=== PATIENT | male | born 1940 | race Caucasian/White ===

== ENCOUNTER 2019-09-22 11:35 | Inpatient (IN) ==
[2019-09-22] MEDS ORDERED: cefTRIAXone(*) 2 GM ADDV.VIAL 2 GM in NS 0.9% 100 ml BAG 100 ML IVPB ONE (12:42)
[2019-09-22] MEDS ORDERED: NS 0.9% 1000 ml BAG 2,250 ML IV ONE (12:45)
[2019-09-22 12:59] LABS: ABS Lymphocytes 0.4 10^3/ul (1.0-4.8); ABS Monocytes 0.7 10^3/ul (0-0.8); Hematocrit 26 % (42-52); Hemoglobin 8.8 g/dL (14.0-18.0); Lymphocyte % 4.4 %; Mean Corpuscular HGB Conc 33 g/dL (31-36); Mean Corpuscular Hemoglobin 29 pg (27-31); Mean Corpuscular Volume 88 fL (80-94); Mean Platelet Volume 9.3 fL (7.4-10.4); Platelet Count 188 10^3/uL (150-450); Red Blood Count 2.99 10^6 /uL (4.18-5.48); Red Cell Distribution Width 17 % (10-15); White Blood Count 8.6 10^3/uL (3.5-10.8)
[2019-09-22] MEDS ORDERED: Cefepime 2 GM in Dextrose(*) 2 GM/50 ML BAG IV ONE (13:11)
[2019-09-22 13:20] LABS: ALT 14 U/L (7-52); AST 10 U/L (13-39); Albumin 3.2 g/dL (3.2-5.2); Albumin/Globulin Ratio 0.7 (1-3); Alkaline Phosphatase 53 U/L (34-104); Anion Gap 8 mmol/L (2-11); BUN/Creatinine Ratio 15.8 (8-20); Blood Urea Nitrogen 16 mg/dL (6-24); C Reactive Protein 81.32 mg/L (<8.01); CO2 Carbon Dioxide 22 mmol/L (22-32); Chloride 102 mmol/L (101-111); EGFR African American 86.7 (>60); EGFR Non-African American 71.6 (>60); Globulin 4.7 g/dL (2-4); Glucose 151 mg/dL (70-100); Potassium 3.5 mmol/L (3.5-5.0); Sodium 132 mmol/L (135-145); Total Protein 7.9 g/dL (6.4-8.9)
[2019-09-22 13:31] LABS: Troponin I 0.03 ng/mL (<0.03)
[2019-09-22 14:11] LABS: Activated Partial Thrombo Time 32.4 seconds (26.0-38.0); INR 1.65 (0.82-1.09)
[2019-09-22] MEDS ORDERED: Dextrose 50% Syringe 50 ml 25 GM/50 ML SYRINGE IV PUSH PRN (14:13)
[2019-09-22] MEDS ORDERED: Ondansetron 4 mg VIAL 2 MG/ML 2 ml VIAL IV PRN (14:15)
[2019-09-22] MEDS ORDERED: Senna TAB 8.6 mg TAB PO PRN (14:15)
[2019-09-22] MEDS ORDERED: NS 0.9% 1000 ml BAG 1,000 ML IV SCH (14:15)
[2019-09-22 14:43] LABS: Amylase 21 U/L (29-103)
[2019-09-22 15:08] LABS: Urine Appearance Cloudy; Urine Bilirubin Negative (Negative); Urine Blood Negative (Negative); Urine Color Yellow; Urine Glucose 1+(50 mg/dL) (Negative); Urine Ketones Trace (Negative); Urine Nitrite Negative (Negative); Urine Protein 1+(30 mg/dL) (Negative); Urine Specific Gravity 1.012 (1.010-1.030); Urine Urobilinogen Negative (Negative)
[2019-09-22 15:13] LABS: Urine Bacteria Absent (Absent); Urine Red Blood Cell Absent (Absent); Urine White Blood Cell Trace(0-5/hpf) (Absent)
[2019-09-22 16:39] LABS: Magnesium 1.7 mg/dL (1.9-2.7)
[2019-09-22 17:11] LABS: Troponin I 0.03 ng/mL (<0.03)
[2019-09-22] MEDS: Rivaroxaban 20 mg TAB (*) PO SCH (17:20)
[2019-09-22] MEDS: oxyCODONE/Acetamin 5/325 mg TAB PO PRN (17:20)
[2019-09-22] MEDS: CALCITONIN INTRANASAL SCH (17:22)
[2019-09-22] MEDS: Insulin LISPRO 100 units/ml(*) SUBCUT SCH (17:23)
[2019-09-22] MEDS ORDERED: Magnesium Sulfate 2 gm BAG 2 GM/50 ML BAG IVPB ONE (18:51)
[2019-09-22] MEDS ORDERED: Calcium Carb 1250 mg TAB (500 mg elemental calcium) PO ONE (18:52)
[2019-09-23] MEDS: Cefepime 2 GM in Dextrose(*) 2 GM/50 ML BAG IV SCH ×2 (02:56→14:16)
[2019-09-23 06:29] LABS: ABS Lymphocytes 0.5 10^3/ul (1.0-4.8); ABS Monocytes 0.4 10^3/ul (0-0.8); Eosinophil % 0.3 %; Hematocrit 22 % (42-52); Hemoglobin 7.6 g/dL (14.0-18.0); Lymphocyte % 10.2 %; Mean Corpuscular HGB Conc 35 g/dL (31-36); Mean Corpuscular Hemoglobin 30 pg (27-31); Mean Corpuscular Volume 87 fL (80-94); Mean Platelet Volume 8.9 fL (7.4-10.4); Nucleated Red Blood Cells % 0.1; Platelet Count 141 10^3/uL (150-450); Red Blood Count 2.52 10^6 /uL (4.18-5.48); Red Cell Distribution Width 16 % (10-15); White Blood Count 4.8 10^3/uL (3.5-10.8)
[2019-09-23 06:43] LABS: BUN/Creatinine Ratio 14.3 (8-20); Calcium 7.4 mg/dL (8.6-10.3); EGFR African American 107.2 (>60); EGFR Non-African American 88.6 (>60); Potassium 3.1 mmol/L (3.5-5.0)
[2019-09-23] MEDS: CALCITONIN INTRANASAL SCH (08:10)
[2019-09-23] MEDS: Insulin LISPRO 100 units/ml(*) SUBCUT SCH ×3 (08:29→16:40)
[2019-09-23] MEDS: Rivaroxaban 20 mg TAB (*) PO SCH (08:31)
[2019-09-23] MEDS: oxyCODONE/Acetamin 5/325 mg TAB PO PRN ×3 (08:31→23:48)
[2019-09-23] MEDS: KCL 20 MEQ/100 ML IVPREMIX 20 MEQ/100 ML BAG IV SCH ×3 (09:53→15:05)
[2019-09-23] MEDS ORDERED: cefTRIAXone(*) 2 GM ADDV.VIAL 2 GM in NS 0.9% 100 ml BAG 100 ML IV SCH (20:00)
[2019-09-24] MEDS: cefTRIAXone(*) 2 GM ADDV.VIAL 2 GM in NS 0.9% 100 ml BAG 100 ML IV SCH (02:35)
[2019-09-24 07:27] LABS: ABS Lymphocytes 0.6 10^3/ul (1.0-4.8); ABS Monocytes 0.4 10^3/ul (0-0.8); Eosinophil % 0.7 %; Hematocrit 23 % (42-52); Hemoglobin 7.9 g/dL (14.0-18.0); Lymphocyte % 12.4 %; Mean Corpuscular HGB Conc 35 g/dL (31-36); Mean Corpuscular Hemoglobin 31 pg (27-31); Mean Corpuscular Volume 87 fL (80-94); Mean Platelet Volume 8.4 fL (7.4-10.4); Nucleated Red Blood Cells % 0.1; Platelet Count 159 10^3/uL (150-450); Red Cell Distribution Width 16 % (10-15); White Blood Count 4.4 10^3/uL (3.5-10.8)
[2019-09-24 07:43] LABS: BUN/Creatinine Ratio 11.8 (8-20); Calcium 6.9 mg/dL (8.6-10.3); EGFR African American 120.3 (>60); EGFR Non-African American 99.5 (>60); Potassium 3.2 mmol/L (3.5-5.0)
[2019-09-24] MEDS ORDERED: cefTRIAXone(*) 2 GM ADDV.VIAL 2 GM in NS 0.9% 100 ml BAG 100 ML IV SCH (09:00)
[2019-09-24] MEDS: Insulin LISPRO 100 units/ml(*) SUBCUT SCH ×3 (09:41→17:11)
[2019-09-24] MEDS: Morphine ER 15 mg (*) ** extended release PO SCH ×2 (10:45→23:10)
[2019-09-24] MEDS: CALCITONIN INTRANASAL SCH (10:50)
[2019-09-24] MEDS: Rivaroxaban 20 mg TAB (*) PO SCH (10:59)
[2019-09-24] MEDS: oxyCODONE/Acetamin 5/325 mg TAB PO PRN ×2 (13:07→19:41)
[2019-09-24] MEDS ORDERED: Midazolam 5 mg/5 ml VIAL 1 mg/ml 5 ml VIAL (5 mg) ONE (13:55)
[2019-09-24] MEDS ORDERED: Flumazenil 0.5 mg/5 ml 0.1 MG/ML 5 ml VIAL ONE (13:55)
[2019-09-24] MEDS ORDERED: Naloxone 0.4 mg VIAL 0.4 mg/ml 1 ml VIAL ONE (13:55)
[2019-09-24] MEDS ORDERED: fentaNYL 100 mcg/2 ml 50 MCG/ML VIAL ONE (13:55)
[2019-09-25] MEDS: cefTRIAXone(*) 2 GM ADDV.VIAL 2 GM in NS 0.9% 100 ml BAG 100 ML IV SCH (02:19)
[2019-09-25 07:54] LABS: ABS Lymphocytes 0.7 10^3/ul (1.0-4.8); ABS Monocytes 0.4 10^3/ul (0-0.8); Eosinophil % 0.6 %; Hematocrit 23 % (42-52); Lymphocyte % 17.2 %; Mean Corpuscular HGB Conc 35 g/dL (31-36); Mean Corpuscular Hemoglobin 30 pg (27-31); Mean Corpuscular Volume 87 fL (80-94); Mean Platelet Volume 8.7 fL (7.4-10.4); Platelet Count 188 10^3/uL (150-450); Red Blood Count 2.62 10^6 /uL (4.18-5.48); Red Cell Distribution Width 16 % (10-15)
[2019-09-25 08:07] LABS: Calcium 6.6 mg/dL (8.6-10.3); Magnesium 1.5 mg/dL (1.9-2.7); Potassium 3.3 mmol/L (3.5-5.0)
[2019-09-25 08:12] LABS: EGFR African American 108.7 (>60); EGFR Non-African American 89.8 (>60)
[2019-09-25] MEDS: Insulin LISPRO 100 units/ml(*) SUBCUT SCH ×3 (08:20→18:22)
[2019-09-25] MEDS: Rivaroxaban 20 mg TAB (*) PO SCH (08:23)
[2019-09-25] MEDS ORDERED: Magnesium Sulf 4 GM/100 ML IV 4,000 MG/100 ML BAG IVPB ONE (08:43)
[2019-09-25] MEDS ORDERED: Potassium Chlor 20 meq TAB.ER PO ONE (08:44)
[2019-09-25] MEDS ORDERED: KCL 20 MEQ/100 ML IVPREMIX 20 MEQ/100 ML BAG IV SCH (09:00)
[2019-09-25] MEDS: oxyCODONE/Acetamin 5/325 mg TAB PO PRN ×2 (09:02→19:58)
[2019-09-25] MEDS: Morphine ER 15 mg (*) ** extended release PO SCH ×2 (10:41→22:49)
[2019-09-25] MEDS: CALCITONIN INTRANASAL SCH (10:49)
[2019-09-26] MEDS: cefTRIAXone(*) 2 GM ADDV.VIAL 2 GM in NS 0.9% 100 ml BAG 100 ML IV SCH (02:10)
[2019-09-26] MEDS: CALCITONIN INTRANASAL SCH (08:33)
[2019-09-26] MEDS: Insulin LISPRO 100 units/ml(*) SUBCUT SCH ×2 (08:38→12:54)
[2019-09-26] MEDS: Rivaroxaban 20 mg TAB (*) PO SCH (08:39)
[2019-09-26] MEDS: oxyCODONE/Acetamin 5/325 mg TAB PO PRN ×2 (09:45→15:57)
[2019-09-26 09:55] LABS: ABS Lymphocytes 0.6 10^3/ul (1.0-4.8); ABS Monocytes 0.3 10^3/ul (0-0.8); Eosinophil % 1.2 %; Hematocrit 23 % (42-52); Mean Corpuscular HGB Conc 34 g/dL (31-36); Mean Corpuscular Hemoglobin 30 pg (27-31); Mean Corpuscular Volume 87 fL (80-94); Mean Platelet Volume 7.5 fL (7.4-10.4); Platelet Count 200 10^3/uL (150-450); Red Blood Count 2.68 10^6 /uL (4.18-5.48); Red Cell Distribution Width 16 % (10-15); White Blood Count 3.2 10^3/uL (3.5-10.8)
[2019-09-26 10:09] LABS: BUN/Creatinine Ratio 8.7 (8-20); Calcium 6.5 mg/dL (8.6-10.3); EGFR African American 134.5 (>60); EGFR Non-African American 111.2 (>60); Potassium 3.3 mmol/L (3.5-5.0)
[2019-09-26 10:18] LABS: Magnesium 1.7 mg/dL (1.9-2.7)
[2019-09-26] MEDS ORDERED: Magnesium Sulfate 2 gm BAG 2 GM/50 ML BAG IVPB ONE (10:53)
[2019-09-26] MEDS ORDERED: Potassium Chlor 20 meq TAB.ER PO ONE (10:54)
[2019-09-26] MEDS: Morphine ER 15 mg (*) ** extended release PO SCH (11:35)
[2019-09-26 16:10] VITALS: BP 120/66
== END 2019-09-26 17:20 | disposition home health service (06) | DRG 872 ==
LOC: ED 11:35 → MED 14:15
PROVIDERS: ADMIT Hospitalist; ATTEND Internal Medicine

== ENCOUNTER 2021-01-26 17:11 | Inpatient (IN) ==
[2021-01-26] MEDS ORDERED: Lactated Ringers 1000 ml BAG IV.FLUID IV ONE (19:11)
[2021-01-26 21:00] LABS: ABS Lymphocytes 0.4 10^3/ul (1.0-4.8); ABS Monocytes 0.5 10^3/ul (0-0.8); ABS Neutrophils 2.5 10^3/ul (1.5-7.7); Hematocrit 28 % (42-52); Hemoglobin 9.3 g/dL (14.0-18.0); Lymphocyte % 11.4 %; Mean Corpuscular HGB Conc 34 g/dL (31-36); Mean Corpuscular Hemoglobin 30 pg (27-31); Mean Corpuscular Volume 88 fL (80-94); Mean Platelet Volume 7.9 fL (7.4-10.4); Platelet Count 170 10^3/uL (150-450); Red Blood Count 3.12 10^6 /uL (4.18-5.48); Red Cell Distribution Width 19 % (10-15); White Blood Count 3.4 10^3/uL (3.5-10.8)
[2021-01-26 21:09] LABS: Activated Partial Thrombo Time 33.4 seconds (26.0-38.0); INR 1.84 (0.86-1.15)
[2021-01-26 21:17] LABS: Rapid COVID-19 Molecular Undetected (Undetected)
[2021-01-26 21:22] LABS: ALT 11 U/L (7-52); AST 12 U/L (13-39); Albumin 4.1 g/dL (3.2-5.2); Albumin/Globulin Ratio 1.1 (1-3); Alkaline Phosphatase 47 U/L (35-149); Anion Gap 9 mmol/L (2-11); Blood Urea Nitrogen 28 mg/dL (6-24); C Reactive Protein 75.75 mg/L (<8.01); CO2 Carbon Dioxide 24 mmol/L (22-32); Chloride 101 mmol/L (101-111); Globulin 3.6 g/dL (2-4); Glucose 167 mg/dL (70-100); Potassium 4.1 mmol/L (3.5-5.0); Sodium 134 mmol/L (135-145); Total Protein 7.7 g/dL (6.4-8.9)
[2021-01-26 21:25] LABS: Troponin I 0.03 ng/mL (<0.03)
[2021-01-26 21:44] LABS: Influenza A Molecular Negative (Negative); Influenza B Molecular Negative (Negative)
[2021-01-26] MEDS ORDERED: cefTRIAXone 1 gm/50 mL NS BAG 1 GM/50 ML BAG IV ONE (23:07)
[2021-01-26] MEDS ORDERED: Azithromycin 500 mg/250 ml NS 500 MG/250 ML BAG IVPB ONE (23:07)
[2021-01-26] MEDS ORDERED: Iodixanol (CONTRAST) 320 MG/ML 100 ML SDV IV ONE (23:15)
[2021-01-26 23:57] LABS: Urine Appearance Clear; Urine Bilirubin Negative (Negative); Urine Blood Negative (Negative); Urine Color Yellow; Urine Glucose 1+(50 mg/dL) (Negative); Urine Ketones Negative (Negative); Urine Nitrite Negative (Negative); Urine Protein 1+(30 mg/dL) (Negative); Urine Specific Gravity 1.015 (1.002-1.030); Urine Urobilinogen Negative (Negative)
[2021-01-26 23:58] LABS: Urine Bacteria Absent (Absent); Urine Red Blood Cell Trace(0-2/hpf) (Absent); Urine White Blood Cell Trace(0-5/hpf) (Absent)
[2021-01-27] MEDS ORDERED: Magnesium Hydroxide LIQ 30 ML UDC PO PRN (02:28)
[2021-01-27] MEDS ORDERED: NS 0.9% 1000 ml BAG 1,000 ML IV SCH ×4 (02:30→19:45)
[2021-01-27] MEDS ORDERED: oxyCODONE/Acetamin 5/325 mg TAB PO PRN (02:45)
[2021-01-27] MEDS ORDERED: Senna TAB 8.6 mg TAB PO PRN (02:45)
[2021-01-27] MEDS ORDERED: Dextrose 50% Syringe 50 ml 25 GM/50 ML SYRINGE IV PUSH PRN (02:48)
[2021-01-27 04:55] LABS: ABS Lymphocytes 0.3 10^3/ul (1.0-4.8); ABS Monocytes 0.3 10^3/ul (0-0.8); ABS Neutrophils 1.4 10^3/ul (1.5-7.7); Eosinophil % 0.1 %; Hematocrit 24 % (42-52); Hemoglobin 7.9 g/dL (14.0-18.0); Lymphocyte % 13.4 %; Mean Corpuscular HGB Conc 33 g/dL (31-36); Mean Corpuscular Hemoglobin 30 pg (27-31); Mean Corpuscular Volume 89 fL (80-94); Mean Platelet Volume 7.7 fL (7.4-10.4); Platelet Count 127 10^3/uL (150-450); Red Blood Count 2.64 10^6 /uL (4.18-5.48); Red Cell Distribution Width 19 % (10-15); White Blood Count 1.9 10^3/uL (3.5-10.8)
[2021-01-27 05:06] LABS: Rapid Strep Molecular Negative (Negative)
[2021-01-27 05:12] LABS: Albumin 3.4 g/dL (3.2-5.2); Albumin/Globulin Ratio 1.1 (1-3); Calcium 8.2 mg/dL (8.6-10.3); Magnesium 1.3 mg/dL (1.9-2.7); Potassium 3.7 mmol/L (3.5-5.0); Total Bilirubin 0.4 mg/dL (0.2-1.0); Total Protein 6.4 g/dL (6.4-8.9)
[2021-01-27 05:19] LABS: Troponin I 0.03 ng/mL (<0.03)
[2021-01-27] MEDS ORDERED: Magnesium Sulfate IV 3 GM in NS 0.9% 100 ml BAG 100 ML IVPB ONE (07:15)
[2021-01-27] MEDS ORDERED: NS 0.9% 100 ml BAG 100 ML ONE (07:26)
[2021-01-27] MEDS ORDERED: Azithromycin 500 mg/250 ml NS 500 MG/250 ML BAG IVPB SCH (18:00)
[2021-01-27] MEDS ORDERED: cefTRIAXone 1 gm/50 mL NS BAG 1 GM/50 ML BAG IVPB SCH (21:00)
[2021-01-28 06:31] LABS: Hematocrit 21 % (42-52); Hemoglobin 7.2 g/dL (14.0-18.0); Mean Corpuscular HGB Conc 34 g/dL (31-36); Mean Corpuscular Hemoglobin 30 pg (27-31); Mean Corpuscular Volume 89 fL (80-94); Mean Platelet Volume 8.1 fL (7.4-10.4); Platelet Count 101 10^3/uL (150-450); Red Cell Distribution Width 19 % (10-15); White Blood Count 1.7 10^3/uL (3.5-10.8)
[2021-01-28 06:57] LABS: Calcium 7.9 mg/dL (8.6-10.3); Magnesium 2.1 mg/dL (1.9-2.7); Potassium 3.6 mmol/L (3.5-5.0)
[2021-01-28 10:20] LABS: ABS Neutrophils 0.7 10^3/ul (1.5-7.7)
[2021-01-28 10:57] LABS: ABS Eosinophils 0.1 10^3/ul (0-0.6); ABS Lymphocytes 0.5 10^3/ul (1.0-4.8); ABS Monocytes 0.4 10^3/ul (0-0.8); Eosinophil % 3.3 %; Lymphocyte % 30.4 %; Nucleated Red Blood Cells % 0.1
[2021-01-28 15:39] LABS: ABS Lymphocytes 0.4 10^3/ul (1.0-4.8); ABS Monocytes 0.3 10^3/ul (0-0.8); Hematocrit 24 % (42-52); Hemoglobin 8.2 g/dL (14.0-18.0); Lymphocyte % 21.1 %; Mean Corpuscular HGB Conc 34 g/dL (31-36); Mean Corpuscular Hemoglobin 30 pg (27-31); Mean Corpuscular Volume 90 fL (80-94); Mean Platelet Volume 8.3 fL (7.4-10.4); Nucleated Red Blood Cells % 0.1; Platelet Count 135 10^3/uL (150-450); Red Cell Distribution Width 19 % (10-15); White Blood Count 1.8 10^3/uL (3.5-10.8)
[2021-01-28 18:16] VITALS: BP 104/47
[2021-01-30 18:23] LABS: Anaplasma phagocytophilum Negative (Negative); B. miyamotoi PCR, B Negative (Negative); Babesia divergens/MO-1 Negative (Negative); Babesia ducani Negative (Negative); Ehrlichia chaffeensis Negative (Negative); Ehrlichia ewingii/canis Negative (Negative); Ehrlichia muris eauclairensis Negative (Negative)
== END 2021-01-28 17:30 | disposition home or self-care (01) | DRG 871 ==
LOC: ED 17:11 → SUATTDRO 01-27 02:28 → EDHOLD 01-27 02:28 → MED 01-27 15:43
PROVIDERS: ADMIT Internal Medicine; ATTEND Hospitalist

== ENCOUNTER 2021-11-09 07:05 | Inpatient (IN) ==
[2021-11-09] MEDS ORDERED: Lactated Ringers 1000 ml BAG 1,000 ML IV ONE (07:09)
[2021-11-09 07:56] LABS: ABS Lymphocytes 0.2 10^3/ul (1.0-4.8); ABS Monocytes 0.4 10^3/ul (0-0.8); ABS Neutrophils 2.2 10^3/ul (1.5-7.7); Hematocrit 25 % (42-52); Hemoglobin 8.3 g/dL (14.0-18.0); Lymphocyte % 7.4 %; Mean Corpuscular HGB Conc 33 g/dL (31-36); Mean Corpuscular Hemoglobin 29 pg (27-31); Mean Corpuscular Volume 88 fL (80-94); Nucleated Red Blood Cells % 0.1; Platelet Count 178 10^3/uL (150-450); Red Blood Count 2.85 10^6 /uL (4.18-5.48); Red Cell Distribution Width 20 % (10-15); White Blood Count 2.8 10^3/uL (3.5-10.8)
[2021-11-09 08:28] LABS: Albumin 3.6 g/dL (3.2-5.2); Albumin/Globulin Ratio 1.2 (1-3); C Reactive Protein 103.08 mg/L (<8.01); Calcium 8.4 mg/dL (8.6-10.3); Globulin 2.9 g/dL (2-4); Total Bilirubin 1.1 mg/dL (0.2-1.0); Total Protein 6.5 g/dL (6.4-8.9); eGFR CKD-EPI 67.5 (>60)
[2021-11-09 09:17] LABS: Activated Partial Thrombo Time 20.7 seconds (26.0-38.0); INR 1.41 (0.89-1.11)
[2021-11-09] MEDS ORDERED: Azithromycin 500 mg/250 ml NS 500 MG/250 ML BAG IVPB ONE (09:41)
[2021-11-09] MEDS ORDERED: cefTRIAXone 1 gm/50 mL D5W 1 GM/50 ML BAG IV ONE (09:41)
[2021-11-09 10:00] LABS: High Sensitivity Troponin 1 Hr 32 pg/mL (<20)
[2021-11-09] MEDS ORDERED: NS 0.9% 1000 ml BAG 1,000 ML IV SCH (10:00)
[2021-11-09 12:40] LABS: Urine Appearance Clear; Urine Bilirubin Negative (Negative); Urine Color Yellow; Urine Glucose 2+ (500mg/dL) (Negative); Urine Ketones Negative (Negative); Urine Nitrite Negative (Negative); Urine Protein 2+ (100 mg/dL) (Negative); Urine Specific Gravity 1.022 (1.002-1.030); Urine Urobilinogen 0.2 (Negative) (Negative); Urine pH 5.5 (5.0-9.0)
[2021-11-09 12:48] LABS: Urine Bacteria 1+ (Absent); Urine Granular Casts Present (Absent); Urine Red Blood Cell 1+(3-5/hpf) (Absent); Urine White Blood Cell Trace(0-5/hpf) (Absent)
[2021-11-09 15:19] LABS: ABS Lymphocytes 0.2 10^3/ul (1.0-4.8); ABS Monocytes 0.3 10^3/ul (0-0.8); ABS Neutrophils 2.4 10^3/ul (1.5-7.7); Eosinophil % 0.2 %; Hematocrit 24 % (42-52); Hemoglobin 7.9 g/dL (14.0-18.0); Lymphocyte % 8.1 %; Mean Corpuscular HGB Conc 33 g/dL (31-36); Mean Corpuscular Hemoglobin 30 pg (27-31); Mean Corpuscular Volume 88 fL (80-94); Mean Platelet Volume 7.8 fL (7.4-10.4); Nucleated Red Blood Cells % 0.1; Platelet Count 176 10^3/uL (150-450); Red Blood Count 2.69 10^6 /uL (4.18-5.48); Red Cell Distribution Width 20 % (10-15); White Blood Count 2.9 10^3/uL (3.5-10.8)
[2021-11-09 16:22] LABS: Albumin 3.4 g/dL (3.2-5.2); Albumin/Globulin Ratio 1.2 (1-3); Globulin 2.9 g/dL (2-4); Potassium 3.9 mmol/L (3.5-5.0); Total Bilirubin 0.7 mg/dL (0.2-1.0); Total Protein 6.3 g/dL (6.4-8.9); eGFR CKD-EPI 71.4 (>60)
[2021-11-09] MEDS ORDERED: oxyCODONE/Acetamin 5/325 mg TAB PO PRN (18:20)
[2021-11-09] MEDS: NS 0.9% 1000 ml BAG 1,000 ML IV SCH (18:37)
[2021-11-10] MEDS: NS 0.9% 1000 ml BAG 1,000 ML IV SCH ×2 (01:40→15:50)
[2021-11-10] MEDS: CMCS: SitaGLIPtin 100 mg TAB (NF) PO SCH (09:03)
[2021-11-10] MEDS ORDERED: Dextrose 50% Syringe 50 ml 25 GM/50 ML SYRINGE IV PUSH PRN (09:40)
[2021-11-10 09:47] LABS: Magnesium 1.5 mg/dL (1.9-2.7)
[2021-11-10] MEDS ORDERED: Magnesium Sulf 4 GM/100 ML IV 4,000 MG/100 ML BAG IVPB ONE (09:54)
[2021-11-10] MEDS ORDERED: cefTRIAXone 1 gm/50 mL D5W 1 GM/50 ML BAG IV SCH (10:30)
[2021-11-10] MEDS ORDERED: Vancomycin 1,000 MG in NS 0.9% 250 ml 250 ML IVPB ONE (10:36)
[2021-11-10] MEDS ORDERED: Piperacillin/Tazobac ADVAN 3.375 GM in NS 0.9% 100 ml BAG 100 ML IV ONE (10:36)
[2021-11-10] MEDS ORDERED: Vancomycin per Pharmacy 1 EA NOTE FOLLOW UP SCH (11:00)
[2021-11-10] MEDS ORDERED: Zosyn per Pharmacy NOTE FOLLOW UP SCH (11:00)
[2021-11-10] MEDS ORDERED: Azithromycin 250 MG in NS 0.9% 250 ml 250 ML IVPB ONE (13:04)
[2021-11-10 13:16] LABS: Hematocrit 24 % (42-52); Hemoglobin 7.7 g/dL (14.0-18.0); Mean Corpuscular HGB Conc 32 g/dL (31-36); Mean Corpuscular Hemoglobin 29 pg (27-31); Mean Corpuscular Volume 89 fL (80-94); Mean Platelet Volume 8.7 fL (7.4-10.4); Platelet Count 177 10^3/uL (150-450); Red Blood Count 2.67 10^6 /uL (4.18-5.48); Red Cell Distribution Width 20 % (10-15); White Blood Count 3.3 10^3/uL (3.5-10.8)
[2021-11-10 13:28] LABS: Calcium 7.4 mg/dL (8.6-10.3); Potassium 3.4 mmol/L (3.5-5.0); eGFR CKD-EPI 65.4 (>60)
[2021-11-10 15:21] LABS: ABS Lymphocytes 0.4 10^3/ul (1.0-4.8); ABS Monocytes 0.3 10^3/ul (0-0.8); ABS Neutrophils 2.6 10^3/ul (1.5-7.7); Eosinophil % 0.2 %; Lymphocyte % 10.8 %
[2021-11-10] MEDS ORDERED: ZOSYN 3.375 GM Q8H per EXTENDED INFUSION IV SCH (15:30)
[2021-11-10] MEDS ORDERED: Vancomycin 750 MG in NS 0.9% 250 ML IVPB SCH (23:00)
[2021-11-11] MEDS ORDERED: Furosemide 40 mg/4 ml IV VIAL IV ONE ×3 (00:28→20:18)
[2021-11-11 00:53] LABS: ABS Lymphocytes 0.1 10^3/ul (1.0-4.8); ABS Monocytes 0.2 10^3/ul (0-0.8); ABS Neutrophils 1.9 10^3/ul (1.5-7.7); Eosinophil % 0.4 %; Hematocrit 24 % (42-52); Hemoglobin 7.7 g/dL (14.0-18.0); Lymphocyte % 2.6 %; Mean Corpuscular HGB Conc 33 g/dL (31-36); Mean Corpuscular Hemoglobin 29 pg (27-31); Mean Corpuscular Volume 88 fL (80-94); Mean Platelet Volume 7.8 fL (7.4-10.4); Platelet Count 137 10^3/uL (150-450); Red Blood Count 2.68 10^6 /uL (4.18-5.48); Red Cell Distribution Width 20 % (10-15); White Blood Count 2.1 10^3/uL (3.5-10.8)
[2021-11-11 01:33] LABS: Albumin 3.2 g/dL (3.2-5.2)
[2021-11-11 01:35] LABS: Calcium 7.3 mg/dL (8.6-10.3); Potassium 3.1 mmol/L (3.5-5.0); Total Bilirubin 0.5 mg/dL (0.2-1.0)
[2021-11-11 01:39] LABS: Albumin/Globulin Ratio 1.2 (1-3); Globulin 2.7 g/dL (2-4); Total Protein 5.9 g/dL (6.4-8.9)
[2021-11-11 01:44] LABS: eGFR CKD-EPI 51.6 (>60)
[2021-11-11] MEDS: CMCS: SitaGLIPtin 100 mg TAB (NF) PO SCH (08:41)
[2021-11-11] MEDS ORDERED: Furosemide 40 mg/4 ml IV VIAL ONE (20:13)
[2021-11-11] MEDS ORDERED: Furosemide 20 mg/2 ml IV VIAL ONE (20:16)
[2021-11-11 20:41] LABS: PCO2 Arterial 32 mmHg (35-45); PO2 Arterial 71 mmHg (80-100)
[2021-11-11 21:16] LABS: Calcium 6.6 mg/dL (8.6-10.3); Potassium 2.9 mmol/L (3.5-5.0); eGFR CKD-EPI 37.3 (>60)
[2021-11-11] MEDS ORDERED: Morphine 2 MG/ML SYRINGE IV ONE (22:29)
[2021-11-11] MEDS: KCL 20 MEQ/100 ML IVPREMIX 20 MEQ/100 ML BAG IV SCH (23:27)
[2021-11-12 00:22] LABS: PCO2 Arterial 27 mmHg (35-45)
[2021-11-12 00:26] LABS: PO2 Arterial 59 mmHg (80-100)
[2021-11-12] MEDS: KCL 20 MEQ/100 ML IVPREMIX 20 MEQ/100 ML BAG IV SCH (01:41)
[2021-11-12] MEDS: Acetaminophen IV 1 GM/100ML 1,000 MG/100 ML BAG IV PRN ×2 (03:11→12:05)
[2021-11-12 04:59] LABS: Hematocrit 22 % (42-52); Hemoglobin 7.3 g/dL (14.0-18.0); Mean Corpuscular HGB Conc 33 g/dL (31-36); Mean Corpuscular Hemoglobin 29 pg (27-31); Mean Corpuscular Volume 86 fL (80-94); Platelet Count 107 10^3/uL (150-450); Red Blood Count 2.57 10^6 /uL (4.18-5.48); Red Cell Distribution Width 20 % (10-15); White Blood Count 2.4 10^3/uL (3.5-10.8)
[2021-11-12 05:46] LABS: Magnesium 1.9 mg/dL (1.9-2.7); Phosphorus 1.7 mg/dL (2.5-5.0); Potassium 3.4 mmol/L (3.5-5.0); eGFR CKD-EPI 32.2 (>60)
[2021-11-12] MEDS ORDERED: Sodium Phosphate IV 15 MMOLE in NS 0.9% 250 ml 250 ML IV ONE (05:54)
[2021-11-12 05:57] LABS: Calcium 6.4 mg/dL (8.6-10.3)
[2021-11-12 06:02] LABS: PCO2 Arterial 26 mmHg (35-45); PO2 Arterial 86 mmHg (80-100)
[2021-11-12] MEDS ORDERED: Calcium Gluconate 2 GM in NS 0.9% 100 ml BAG 100 ML IV ONE (06:17)
[2021-11-12] MEDS ORDERED: Iodixanol (CONTRAST) 320 MG/ML 100 ML SDV IV ONE (06:57)
[2021-11-12] MEDS ORDERED: Potassium Chloride LIQUID 20 MEQ/15 ML LIQUID PO ONE (07:22)
[2021-11-12 08:52] LABS: ABS Monocytes 0.2 10^3/ul (0-0.8); ABS Neutrophils 2.2 10^3/ul (1.5-7.7); Eosinophil % 0.1 %; Lymphocyte % 1.7 %; Nucleated Red Blood Cells % 0.1
[2021-11-12] MEDS: CMCS: SitaGLIPtin 100 mg TAB (NF) PO SCH (10:19)
[2021-11-12] MEDS ORDERED: Vancomycin Trough Check NOTE FOLLOW UP ONE (10:30)
[2021-11-12] MEDS: Azithromycin 500 mg/250 ml NS 500 MG/250 ML BAG IVPB SCH (12:08)
[2021-11-13 03:51] LABS: Hematocrit 23 % (42-52); Hemoglobin 7.4 g/dL (14.0-18.0); Mean Corpuscular HGB Conc 32 g/dL (31-36); Mean Corpuscular Hemoglobin 28 pg (27-31); Mean Corpuscular Volume 85 fL (80-94); Mean Platelet Volume 8.3 fL (7.4-10.4); Platelet Count 109 10^3/uL (150-450); Red Blood Count 2.68 10^6 /uL (4.18-5.48); Red Cell Distribution Width 20 % (10-15); White Blood Count 2.8 10^3/uL (3.5-10.8)
[2021-11-13 04:08] LABS: ABS Monocytes 0.1 10^3/ul (0-0.8); ABS Neutrophils 2.7 10^3/ul (1.5-7.7); Eosinophil % 0.7 %; Lymphocyte % 1.6 %; Nucleated Red Blood Cells % 0.2
[2021-11-13 04:37] LABS: Calcium 6.6 mg/dL (8.6-10.3); Phosphorus 3.2 mg/dL (2.5-5.0); Potassium 2.8 mmol/L (3.5-5.0); eGFR CKD-EPI 33.3 (>60)
[2021-11-13] MEDS: KCL 20 MEQ/100 ML IVPREMIX 20 MEQ/100 ML BAG IV SCH ×2 (05:06→07:48)
[2021-11-13] MEDS: CMCS: SitaGLIPtin 100 mg TAB (NF) PO SCH (08:56)
[2021-11-13] MEDS ORDERED: Lactated Ringers 1000 ml BAG 1,000 ML IV SCH (09:00)
[2021-11-13] MEDS: Azithromycin 500 mg/250 ml NS 500 MG/250 ML BAG IVPB SCH (12:56)
[2021-11-14 04:56] LABS: Hematocrit 21 % (42-52); Mean Corpuscular HGB Conc 33 g/dL (31-36); Mean Corpuscular Hemoglobin 28 pg (27-31); Mean Corpuscular Volume 85 fL (80-94); Red Blood Count 2.52 10^6 /uL (4.18-5.48); Red Cell Distribution Width 20 % (10-15); White Blood Count 2.4 10^3/uL (3.5-10.8)
[2021-11-14 05:03] LABS: Calcium 6.9 mg/dL (8.6-10.3)
[2021-11-14 05:05] LABS: Potassium 2.7 mmol/L (3.5-5.0)
[2021-11-14 05:09] LABS: Phosphorus 2.2 mg/dL (2.5-5.0); eGFR CKD-EPI 44.6 (>60)
[2021-11-14] MEDS: Potassium Chlor 20 meq TAB.ER PO SCH ×2 (06:03→08:12)
[2021-11-14 06:25] LABS: ABS Lymphocytes 0.1 10^3/ul (1.0-4.8); ABS Monocytes 0.2 10^3/ul (0-0.8); Eosinophil % 0.6 %; Lymphocyte % 5.9 %; Mean Platelet Volume 8.7 fL (7.4-10.4); Nucleated Red Blood Cells % 0.1; Platelet Count 95 10^3/uL (150-450)
[2021-11-14] MEDS: CMCS: SitaGLIPtin 100 mg TAB (NF) PO SCH (08:13)
[2021-11-14] MEDS: Azithromycin 500 mg/250 ml NS 500 MG/250 ML BAG IVPB SCH (13:27)
[2021-11-15 06:52] LABS: ABS Lymphocytes 0.2 10^3/ul (1.0-4.8); ABS Monocytes 0.2 10^3/ul (0-0.8); ABS Neutrophils 1.8 10^3/ul (1.5-7.7); Eosinophil % 0.7 %; Hematocrit 20 % (42-52); Hemoglobin 6.8 g/dL (14.0-18.0); Lymphocyte % 9.5 %; Mean Corpuscular HGB Conc 34 g/dL (31-36); Mean Corpuscular Hemoglobin 29 pg (27-31); Mean Corpuscular Volume 85 fL (80-94); Mean Platelet Volume 8.7 fL (7.4-10.4); Platelet Count 81 10^3/uL (150-450); Red Blood Count 2.39 10^6 /uL (4.18-5.48); Red Cell Distribution Width 20 % (10-15); White Blood Count 2.3 10^3/uL (3.5-10.8)
[2021-11-15 07:02] LABS: Calcium 7.2 mg/dL (8.6-10.3); Magnesium 1.9 mg/dL (1.9-2.7); Potassium 3.1 mmol/L (3.5-5.0); eGFR CKD-EPI 48.2 (>60)
[2021-11-15] MEDS: CMCS: SitaGLIPtin 100 mg TAB (NF) PO SCH (09:06)
[2021-11-15] MEDS: KCL 10 MEQ/50 ML IVPREMIX 10 MEQ/50 ML BAG IV SCH ×3 (11:18→13:43)
[2021-11-15] MEDS: Azithromycin 500 mg/250 ml NS 500 MG/250 ML BAG IVPB SCH (14:51)
[2021-11-16 06:04] LABS: ABS Lymphocytes 0.2 10^3/ul (1.0-4.8); ABS Monocytes 0.2 10^3/ul (0-0.8); ABS Neutrophils 2.7 10^3/ul (1.5-7.7); Eosinophil % 0.6 %; Hematocrit 25 % (42-52); Lymphocyte % 6.4 %; Mean Corpuscular HGB Conc 33 g/dL (31-36); Mean Corpuscular Hemoglobin 28 pg (27-31); Mean Corpuscular Volume 86 fL (80-94); Mean Platelet Volume 8.5 fL (7.4-10.4); Nucleated Red Blood Cells % 0.2; Platelet Count 82 10^3/uL (150-450); Red Blood Count 2.87 10^6 /uL (4.18-5.48); Red Cell Distribution Width 19 % (10-15); White Blood Count 3.1 10^3/uL (3.5-10.8)
[2021-11-16 06:07] LABS: Calcium 7.4 mg/dL (8.6-10.3); Magnesium 1.5 mg/dL (1.9-2.7); Phosphorus 1.8 mg/dL (2.5-5.0); Potassium 3.3 mmol/L (3.5-5.0); eGFR CKD-EPI 56.4 (>60)
[2021-11-16] MEDS: CMCS: SitaGLIPtin 100 mg TAB (NF) PO SCH (08:07)
[2021-11-16] MEDS: D5W 1/2 NS 40 Meq KCL 1000 ml 1,000 ML IV SCH (10:09)
[2021-11-16] MEDS: Azithromycin 500 mg/250 ml NS 500 MG/250 ML BAG IVPB SCH (12:59)
[2021-11-17] MEDS: D5W 1/2 NS 40 Meq KCL 1000 ml 1,000 ML IV SCH ×2 (00:36→22:53)
[2021-11-17] MEDS: CMCS: SitaGLIPtin 100 mg TAB (NF) PO SCH (08:09)
[2021-11-17 08:55] LABS: ABS Lymphocytes 0.3 10^3/ul (1.0-4.8); ABS Monocytes 0.1 10^3/ul (0-0.8); ABS Neutrophils 3.3 10^3/ul (1.5-7.7); Eosinophil % 0.6 %; Hematocrit 25 % (42-52); Hemoglobin 8.1 g/dL (14.0-18.0); Lymphocyte % 8.6 %; Mean Corpuscular HGB Conc 33 g/dL (31-36); Mean Corpuscular Hemoglobin 28 pg (27-31); Mean Corpuscular Volume 84 fL (80-94); Nucleated Red Blood Cells % 0.1; Platelet Count 102 10^3/uL (150-450); Red Blood Count 2.95 10^6 /uL (4.18-5.48); Red Cell Distribution Width 19 % (10-15); White Blood Count 3.8 10^3/uL (3.5-10.8)
[2021-11-17 09:50] LABS: ALT 19 U/L (7-52); AST 15 U/L (13-39); Albumin 2.6 g/dL (3.2-5.2); Albumin/Globulin Ratio 0.9 (1-3); Alkaline Phosphatase 70 U/L (35-149); Blood Urea Nitrogen 21 mg/dL (6-24); CO2 Carbon Dioxide 26 mmol/L (22-32); Calcium 7.3 mg/dL (8.6-10.3); Chloride 110 mmol/L (101-111); Globulin 2.8 g/dL (2-4); Glucose 184 mg/dL (70-100); Magnesium 1.2 mg/dL (1.9-2.7); Potassium 3.2 mmol/L (3.5-5.0); Total Protein 5.4 g/dL (6.4-8.9); eGFR CKD-EPI 76.6 (>60)
[2021-11-17 09:52] LABS: Anion Gap 11 mmol/L (2-11); Sodium 147 mmol/L (135-145)
[2021-11-17] MEDS ORDERED: Magnesium Sulf 4 GM/100 ML IV 4,000 MG/100 ML BAG IVPB ONE (10:56)
[2021-11-17] MEDS: KCL 10 MEQ/50 ML IVPREMIX 10 MEQ/50 ML BAG IV SCH ×3 (11:17→17:02)
[2021-11-17 11:44] LABS: Total Iron Binding Capacity 217 mcg/dL (250-450); Transferrin 155 mg/dL (203-362)
[2021-11-17 11:45] LABS: % Iron Saturation 9 % (15-55); Iron < 20 ug/dL (50-212); Unsaturated Iron Binding 197 ug/dL
[2021-11-17 11:55] LABS: Ferritin 478.5 ng/mL (24-336)
[2021-11-17 12:00] LABS: Vitamin B12 > 1450 pg/mL (180-914)
[2021-11-17] MEDS: Azithromycin 500 mg/250 ml NS 500 MG/250 ML BAG IVPB SCH (12:54)
[2021-11-18] MEDS: CMCS: SitaGLIPtin 100 mg TAB (NF) PO SCH (08:27)
[2021-11-18 09:35] LABS: ABS Lymphocytes 0.4 10^3/ul (1.0-4.8); ABS Monocytes 0.2 10^3/ul (0-0.8); ABS Neutrophils 3.6 10^3/ul (1.5-7.7); Eosinophil % 0.9 %; Hematocrit 24 % (42-52); Lymphocyte % 8.9 %; Mean Corpuscular HGB Conc 33 g/dL (31-36); Mean Corpuscular Hemoglobin 29 pg (27-31); Mean Corpuscular Volume 85 fL (80-94); Mean Platelet Volume 8.4 fL (7.4-10.4); Nucleated Red Blood Cells % 0.1; Platelet Count 111 10^3/uL (150-450); Red Cell Distribution Width 19 % (10-15); White Blood Count 4.2 10^3/uL (3.5-10.8)
[2021-11-18 09:48] LABS: Albumin 2.6 g/dL (3.2-5.2); Albumin/Globulin Ratio 0.9 (1-3); Calcium 7.1 mg/dL (8.6-10.3); Globulin 2.9 g/dL (2-4); Magnesium 1.5 mg/dL (1.9-2.7); Potassium 3.4 mmol/L (3.5-5.0); Total Bilirubin 0.4 mg/dL (0.2-1.0); Total Protein 5.5 g/dL (6.4-8.9); eGFR CKD-EPI 73.9 (>60)
[2021-11-18] MEDS: Potassium Chlor 20 meq TAB.ER PO SCH (11:50)
[2021-11-18] MEDS: Azithromycin 500 mg/250 ml NS 500 MG/250 ML BAG IVPB SCH (12:05)
[2021-11-19 06:07] LABS: ABS Lymphocytes 0.4 10^3/ul (1.0-4.8); ABS Monocytes 0.2 10^3/ul (0-0.8); ABS Neutrophils 3.2 10^3/ul (1.5-7.7); Eosinophil % 1.2 %; Hematocrit 23 % (42-52); Hemoglobin 7.9 g/dL (14.0-18.0); Lymphocyte % 11.1 %; Mean Corpuscular HGB Conc 34 g/dL (31-36); Mean Corpuscular Hemoglobin 29 pg (27-31); Mean Corpuscular Volume 85 fL (80-94); Mean Platelet Volume 8.7 fL (7.4-10.4); Platelet Count 120 10^3/uL (150-450); Red Blood Count 2.75 10^6 /uL (4.18-5.48); Red Cell Distribution Width 19 % (10-15)
[2021-11-19 07:08] LABS: Albumin 2.5 g/dL (3.2-5.2); Albumin/Globulin Ratio 0.9 (1-3); Calcium 7.2 mg/dL (8.6-10.3); Globulin 2.8 g/dL (2-4); Magnesium 1.3 mg/dL (1.9-2.7); Potassium 3.3 mmol/L (3.5-5.0); Total Bilirubin 0.4 mg/dL (0.2-1.0); Total Protein 5.3 g/dL (6.4-8.9); eGFR CKD-EPI 71.4 (>60)
[2021-11-19] MEDS ORDERED: Magnesium Sulfate IV 3 GM in NS 0.9% 100 ml BAG 100 ML IVPB ONE (08:43)
[2021-11-19] MEDS: Potassium Chlor 20 meq TAB.ER PO SCH (09:28)
[2021-11-19] MEDS: CMCS: SitaGLIPtin 100 mg TAB (NF) PO SCH (09:28)
[2021-11-19] MEDS: Azithromycin 500 mg/250 ml NS 500 MG/250 ML BAG IVPB SCH (12:51)
[2021-11-20] MEDS: CMCS: SitaGLIPtin 100 mg TAB (NF) PO SCH (08:33)
[2021-11-20] MEDS: Potassium Chlor 20 meq TAB.ER PO SCH (08:33)
[2021-11-20 11:31] VITALS: BP 123/68
== END 2021-11-20 13:45 | DRG 871 ==
LOC: ED 07:05 → EDHOLD 09:54 → MED 13:14 → ICU 11-11 22:30 → MED 11-14 16:19
PROVIDERS: ADMIT Internal Medicine Medical Oncology; ATTEND Internal Medicine Medical Oncology

== ENCOUNTER 2021-12-16 15:45 | Observation (INO) ==
[2021-12-16 16:48] LABS: ABS Eosinophils 0.1 10^3/ul (0-0.6); ABS Lymphocytes 0.2 10^3/ul (1.0-4.8); ABS Monocytes 0.7 10^3/ul (0-0.8); ABS Neutrophils 3.8 10^3/ul (1.5-7.7); Eosinophil % 1.9 %; Hematocrit 30 % (42-52); Hemoglobin 9.6 g/dL (14.0-18.0); Lymphocyte % 3.4 %; Mean Corpuscular HGB Conc 32 g/dL (31-36); Mean Corpuscular Hemoglobin 27 pg (27-31); Mean Corpuscular Volume 87 fL (80-94); Mean Platelet Volume 8.1 fL (7.4-10.4); Platelet Count 157 10^3/uL (150-450); Red Blood Count 3.49 10^6 /uL (4.18-5.48); Red Cell Distribution Width 19 % (10-15); White Blood Count 4.7 10^3/uL (3.5-10.8)
[2021-12-16] MEDS ORDERED: NS 0.9% 1000 ml BAG 1,000 ML IV ONE ×2 (17:16→19:47)
[2021-12-16 17:17] LABS: Albumin 3.4 g/dL (3.2-5.2); Albumin/Globulin Ratio 1.1 (1-3); Globulin 3.1 g/dL (2-4); Magnesium 1.3 mg/dL (1.9-2.7); Potassium 3.9 mmol/L (3.5-5.0); Total Bilirubin 0.5 mg/dL (0.2-1.0); Total Protein 6.5 g/dL (6.4-8.9); eGFR CKD-EPI 38.3 (>60)
[2021-12-16] MEDS ORDERED: Magnesium Sulfate 2 gm BAG 2 GM/50 ML BAG IVPB ONE ×2 (17:39→22:24)
[2021-12-16 19:26] LABS: Urine Appearance Cloudy; Urine Bilirubin Negative (Negative); Urine Blood 1+ (Negative); Urine Color Yellow; Urine Glucose Negative (Negative); Urine Ketones Negative (Negative); Urine Nitrite Negative (Negative); Urine Protein Negative (Negative); Urine Specific Gravity 1.013 (1.002-1.030); Urine Urobilinogen Negative (Negative)
[2021-12-16 19:39] LABS: Urine Bacteria 1+ (Absent); Urine Red Blood Cell 1+(3-5/hpf) (Absent); Urine Squamous Epithelial Cell Present (Absent); Urine White Blood Cell 3+(>20/hpf) (Absent)
[2021-12-16] MEDS ORDERED: cefTRIAXone 1 gm/50 mL D5W 1 GM/50 ML BAG IV ONE (19:53)
[2021-12-16] MEDS ORDERED: Lactated Ringers 1000 ml BAG 1,000 ML IV ONE (22:22)
[2021-12-17 05:45] LABS: ABS Lymphocytes 0.4 10^3/ul (1.0-4.8); ABS Monocytes 0.4 10^3/ul (0-0.8); ABS Neutrophils 1.9 10^3/ul (1.5-7.7); Eosinophil % 1.5 %; Hematocrit 25 % (42-52); Lymphocyte % 15.1 %; Mean Corpuscular HGB Conc 32 g/dL (31-36); Mean Corpuscular Hemoglobin 28 pg (27-31); Mean Corpuscular Volume 87 fL (80-94); Mean Platelet Volume 7.8 fL (7.4-10.4); Platelet Count 135 10^3/uL (150-450); Red Blood Count 2.87 10^6 /uL (4.18-5.48); Red Cell Distribution Width 19 % (10-15); White Blood Count 2.7 10^3/uL (3.5-10.8)
[2021-12-17 06:02] LABS: Calcium 7.3 mg/dL (8.6-10.3); Magnesium 2.3 mg/dL (1.9-2.7); Potassium 3.4 mmol/L (3.5-5.0); eGFR CKD-EPI 53.4 (>60)
[2021-12-17] MEDS: KCL 10 MEQ/50 ML IVPREMIX 10 MEQ/50 ML BAG IV SCH ×2 (08:37→10:33)
[2021-12-17] MEDS ORDERED: Potassium Chlor 20 meq TAB.ER PO ONE (08:47)
[2021-12-17] MEDS ORDERED: LENALIDOMIDE 10 MG PO SCH (09:00)
[2021-12-17] MEDS ORDERED: Potassium Chlor 20 meq TAB.ER PO SCH (09:00)
[2021-12-17] MEDS ORDERED: cefTRIAXone 1 gm/50 mL D5W 1 GM/50 ML BAG IV SCH (21:00)
[2021-12-18 06:29] LABS: ABS Eosinophils 0.1 10^3/ul (0-0.6); ABS Lymphocytes 0.8 10^3/ul (1.0-4.8); ABS Monocytes 0.5 10^3/ul (0-0.8); ABS Neutrophils 1.8 10^3/ul (1.5-7.7); Eosinophil % 1.8 %; Hematocrit 25 % (42-52); Hemoglobin 8.1 g/dL (14.0-18.0); Mean Corpuscular HGB Conc 32 g/dL (31-36); Mean Corpuscular Hemoglobin 28 pg (27-31); Mean Corpuscular Volume 88 fL (80-94); Platelet Count 138 10^3/uL (150-450); Red Blood Count 2.89 10^6 /uL (4.18-5.48); Red Cell Distribution Width 18 % (10-15); White Blood Count 3.1 10^3/uL (3.5-10.8)
[2021-12-18 06:30] LABS: Calcium 7.2 mg/dL (8.6-10.3); Magnesium 1.7 mg/dL (1.9-2.7); Phosphorus 2.4 mg/dL (2.5-5.0); Potassium 3.4 mmol/L (3.5-5.0); eGFR CKD-EPI 62.8 (>60)
[2021-12-18] MEDS ORDERED: Magnesium Sulf 4 GM/100 ML IV 4,000 MG/100 ML BAG IVPB ONE (07:41)
[2021-12-19 06:10] LABS: ABS Eosinophils 0.1 10^3/ul (0-0.6); ABS Monocytes 0.6 10^3/ul (0-0.8); ABS Neutrophils 1.9 10^3/ul (1.5-7.7); Eosinophil % 2.3 %; Hematocrit 26 % (42-52); Hemoglobin 8.5 g/dL (14.0-18.0); Lymphocyte % 27.6 %; Mean Corpuscular HGB Conc 33 g/dL (31-36); Mean Corpuscular Hemoglobin 28 pg (27-31); Mean Corpuscular Volume 86 fL (80-94); Mean Platelet Volume 7.8 fL (7.4-10.4); Nucleated Red Blood Cells % 0.2; Platelet Count 153 10^3/uL (150-450); Red Cell Distribution Width 18 % (10-15); White Blood Count 3.5 10^3/uL (3.5-10.8)
[2021-12-19 06:22] LABS: Calcium 7.2 mg/dL (8.6-10.3); Potassium 3.3 mmol/L (3.5-5.0); eGFR CKD-EPI 84.6 (>60)
[2021-12-19 07:10] LABS: Magnesium 1.9 mg/dL (1.9-2.7)
[2021-12-19] MEDS ORDERED: Magnesium Sulfate 2 gm BAG 2 GM/50 ML BAG IVPB ONE (07:33)
[2021-12-19] MEDS ORDERED: Potassium Chlor 20 meq TAB.ER PO ONE (07:34)
[2021-12-19] MEDS: KCL 10 MEQ/50 ML IVPREMIX 10 MEQ/50 ML BAG IV SCH ×3 (10:54→14:12)
[2021-12-19] MEDS ORDERED: KCL 10 MEQ/50 ML IVPREMIX 10 MEQ/50 ML BAG ONE (14:11)
[2021-12-19] MEDS: Cholestyramine Resin 4 GM POWDER PO SCH ×2 (14:17→21:06)
[2021-12-19 14:28] LABS: Ferritin 141.8 ng/mL (24-336)
[2021-12-20 06:29] LABS: Calcium 7.6 mg/dL (8.6-10.3); Magnesium 1.7 mg/dL (1.9-2.7); Potassium 4.2 mmol/L (3.5-5.0); eGFR CKD-EPI 74.8 (>60)
[2021-12-20 07:35] LABS: Albumin 3.2 g/dL (3.2-5.2)
[2021-12-20] MEDS: Cholestyramine Resin 4 GM POWDER PO SCH (07:53)
[2021-12-20] MEDS ORDERED: Potassium Chlor 20 meq TAB.ER PO SCH (09:00)
[2021-12-20] MEDS ORDERED: Magnesium Chloride EC 64 mgTAB PO SCH (09:00)
[2021-12-20 11:18] VITALS: BP 145/75
== END 2021-12-20 14:10 | disposition home or self-care (01) ==
LOC: EDHOLD 15:45 → ED 15:45 → SUATTDRO 21:31 → MED 12-17 00:31
PROVIDERS: ADMIT Internal Medicine; ATTEND Internal Medicine

== ENCOUNTER 2022-07-23 15:40 | Inpatient (IN) ==
[2022-07-23] MEDS ORDERED: NS 0.9% 1000 ml BAG 1,000 ML IV ONE (15:45)
[2022-07-23 16:33] LABS: ABS Lymphocytes 0.2 10^3/uL (1.0-4.8); ABS Monocytes 0.3 10^3/uL (0.0-1.1); Eosinophil % 0.5 %; Hematocrit 26.1 % (38-53); Hemoglobin 8.7 g/dL (13.2-16.3); Lymphocyte % 8.3 %; Mean Corpuscular Hemoglobin 28.2 pg (27-33); Mean Corpuscular Hgb Conc 33.4 g/dL (31-36); Mean Corpuscular Volume 84.3 fL (80-97); Mean Platelet Volume 7.5 fL (7.5-11.2); Nucleated Red Blood Cells % 0.1 /100 WBC (0.0-0.4); Platelet Count 225 10^3/uL (150-450); Red Cell Distribution Width 18.2 % (12-17); White Blood Count 2.6 10^3/uL (3.6-10.2)
[2022-07-23] MEDS ORDERED: Piperacillin/Tazobac ADVAN 3.375 GM in NS 0.9% 100 ml BAG 100 ML IV ONE (16:36)
[2022-07-23 17:01] LABS: Albumin 3.7 g/dL (3.2-5.2); Albumin/Globulin Ratio 1.3 (1-3); C Reactive Protein 7.61 mg/L (<8.01); Creatinine, Serum 1.12 mg/dL (0.67-1.17); Globulin 2.9 g/dL (2-4); Magnesium 1.2 mg/dL (1.9-2.7); Phosphorus 2.1 mg/dL (2.5-5.0); Potassium 3.5 mmol/L (3.5-5.0); Total Bilirubin 0.4 mg/dL (0.2-1.0); Total Protein 6.6 g/dL (6.4-8.9); eGFR CKD-EPI 66.8 (>60)
[2022-07-23] MEDS ORDERED: Iodixanol (CONTRAST) 320 MG/ML 100 ML SDV IV ONE (17:11)
[2022-07-23] MEDS ORDERED: Magnesium Sulfate 2 gm BAG 2 GM/50 ML BAG IVPB ONE (18:15)
[2022-07-23 19:45] LABS: High Sensitivity Troponin 1 Hr 19 pg/mL (<20)
[2022-07-23 21:09] LABS: Urine Appearance Cloudy; Urine Bilirubin Negative (Negative); Urine Blood 1+ (Negative); Urine Color Yellow; Urine Glucose Negative (Negative); Urine Ketones Negative (Negative); Urine Nitrite Negative (Negative); Urine Protein 1+(30 mg/dL) (Negative); Urine Urobilinogen Negative (Negative)
[2022-07-23 21:33] LABS: Urine Bacteria Absent (Absent); Urine Red Blood Cell 3+(>10/hpf) (Absent); Urine White Blood Cell 3+(>20/hpf) (Absent); Urine Yeast Present (Absent)
[2022-07-23 21:42] LABS: Urine Uric Acid Crystals Present (Absent)
[2022-07-23] MEDS ORDERED: Zosyn per Pharmacy NOTE FOLLOW UP SCH (22:00)
[2022-07-23] MEDS ORDERED: Vancomycin per Pharmacy 1 EA NOTE FOLLOW UP SCH (22:00)
[2022-07-23 22:04] LABS: Urine Specific Gravity > 1.060 (1.002-1.030)
[2022-07-23] MEDS ORDERED: Vancomycin 1,250 MG in NS 0.9% 250 ml 250 ML IVPB ONE (22:30)
[2022-07-23] MEDS ORDERED: Magnesium Sulf 4 GM/100 ML IV 4,000 MG/100 ML BAG IVPB ONE (22:42)
[2022-07-23] MEDS ORDERED: Lactated Ringers 1000 ml BAG 1,000 ML IV ONE (22:45)
[2022-07-23] MEDS ORDERED: Senna TAB 8.6 mg TAB PO PRN (23:07)
[2022-07-23] MEDS ORDERED: Polyethylene Glycol 3350 17 GM PACKET PO PRN (23:07)
[2022-07-23] MEDS: ZOSYN 3.375 GM Q8H per EXTENDED INFUSION IV SCH (23:09)
[2022-07-23] MEDS ORDERED: Potassium Chlor 20 meq TAB.ER PO ONE (23:12)
[2022-07-24] MEDS ORDERED: Lactated Ringers 1000 ml BAG 1,000 ML IV SCH ×2 (04:00→10:53)
[2022-07-24] MEDS: ZOSYN 3.375 GM Q8H per EXTENDED INFUSION IV SCH ×3 (06:46→21:28)
[2022-07-24] MEDS: Calcium/Vitamin D TAB 250/125 TAB PO SCH (08:53)
[2022-07-24] MEDS: Potassium Chlor 20 meq TAB.ER PO SCH (08:53)
[2022-07-24] MEDS ORDERED: LENALIDOMIDE 10 MG PO SCH (09:00)
[2022-07-24] MEDS ORDERED: Calcitonin NASAL(NF) 200 UNITS/SPRAY NASAL.SPR ALT NARE SCH (09:00)
[2022-07-24] MEDS: oxyCODONE/Acetamin 5/325 mg TAB PO PRN ×2 (09:03→21:40)
[2022-07-24 09:06] LABS: ABS Lymphocytes 0.4 10^3/uL (1.0-4.8); ABS Monocytes 0.5 10^3/uL (0.0-1.1); ABS Neutrophils 1.8 10^3/uL (1.5-7.6); Eosinophil % 0.2 %; Hematocrit 25.4 % (38-53); Hemoglobin 8.6 g/dL (13.2-16.3); Lymphocyte % 13.4 %; Mean Corpuscular Hemoglobin 29.2 pg (27-33); Mean Corpuscular Hgb Conc 33.9 g/dL (31-36); Mean Platelet Volume 8.3 fL (7.5-11.2); Nucleated Red Blood Cells % 0.1 /100 WBC (0.0-0.4); Platelet Count 186 10^3/uL (150-450); Red Blood Count 2.96 10^6/uL (4.06-5.63); Red Cell Distribution Width 18.3 % (12-17); White Blood Count 2.7 10^3/uL (3.6-10.2)
[2022-07-24 09:46] LABS: Calcium 7.3 mg/dL (8.6-10.3); Creatinine, Serum 1.04 mg/dL (0.67-1.17); Magnesium 2.4 mg/dL (1.9-2.7); Potassium 3.8 mmol/L (3.5-5.0)
[2022-07-24] MEDS ORDERED: Vancomycin 750 MG in NS 0.9% 250 ML IVPB SCH (15:00)
[2022-07-24] MEDS: SITAGLIPTIN 100 MG PO SCH (20:21)
[2022-07-24] MEDS ORDERED: Insulin GLARGINE 100 un/ml 10 ml VIAL SUBCUT SCH (21:00)
[2022-07-25] MEDS: ZOSYN 3.375 GM Q8H per EXTENDED INFUSION IV SCH ×3 (05:01→21:57)
[2022-07-25] MEDS: oxyCODONE/Acetamin 5/325 mg TAB PO PRN (11:16)
[2022-07-25] MEDS: Calcium/Vitamin D TAB 250/125 TAB PO SCH (11:17)
[2022-07-25] MEDS: PTO: Calcitonin NASAL(NF) 200 UNITS/SPRAY NASAL.SPR ALT NARE SCH (11:19)
[2022-07-25] MEDS: Potassium Chlor 20 meq TAB.ER PO SCH (11:20)
[2022-07-25] MEDS: SITAGLIPTIN 100 MG PO SCH (11:20)
[2022-07-25] MEDS ORDERED: Vancomycin Trough Check NOTE FOLLOW UP ONE (14:30)
[2022-07-25] MEDS ORDERED: Ondansetron 4 mg VIAL 2 MG/ML 2 ml VIAL IV PRN (17:36)
[2022-07-26 05:09] LABS: ABS Eosinophils 0.1 10^3/uL (0.0-0.5); ABS Lymphocytes 0.4 10^3/uL (1.0-4.8); ABS Monocytes 0.4 10^3/uL (0.0-1.1); ABS Neutrophils 1.4 10^3/uL (1.5-7.6); Eosinophil % 2.4 %; Hematocrit 23.3 % (38-53); Lymphocyte % 18.3 %; Mean Corpuscular Hemoglobin 28.8 pg (27-33); Mean Corpuscular Hgb Conc 34.4 g/dL (31-36); Mean Corpuscular Volume 83.5 fL (80-97); Mean Platelet Volume 7.7 fL (7.5-11.2); Nucleated Red Blood Cells % 0.1 /100 WBC (0.0-0.4); Platelet Count 193 10^3/uL (150-450); Red Blood Count 2.79 10^6/uL (4.06-5.63); Red Cell Distribution Width 18.3 % (12-17); White Blood Count 2.3 10^3/uL (3.6-10.2)
[2022-07-26 05:43] LABS: Calcium 7.1 mg/dL (8.6-10.3); Creatinine, Serum 1.07 mg/dL (0.67-1.17); Potassium 3.3 mmol/L (3.5-5.0); eGFR CKD-EPI 70.6 (>60)
[2022-07-26] MEDS: ZOSYN 3.375 GM Q8H per EXTENDED INFUSION IV SCH ×2 (05:55→13:56)
[2022-07-26 08:34] LABS: Magnesium 1.8 mg/dL (1.9-2.7)
[2022-07-26] MEDS: Calcium/Vitamin D TAB 250/125 TAB PO SCH (09:37)
[2022-07-26] MEDS: Potassium Chlor 20 meq TAB.ER PO SCH (09:39)
[2022-07-26] MEDS: PTO: Calcitonin NASAL(NF) 200 UNITS/SPRAY NASAL.SPR ALT NARE SCH (09:39)
[2022-07-26] MEDS: SITAGLIPTIN 100 MG PO SCH (09:39)
[2022-07-26 15:29] VITALS: BP 118/62
== END 2022-07-26 16:30 | disposition home or self-care (01) | DRG 867 ==
LOC: ED 15:40 → EDHOLD 15:40 → OBSVTOIN 19:47 → SUATTDRO 19:47 → INTOOBSV 19:47 → MEDTELE 07-24 17:04
PROVIDERS: ADMIT Student in an Organized Health Care Education/Training Program; ATTEND Internal Medicine